=== PATIENT | female | born 1965 | race Caucasian/White ===

== ENCOUNTER 2017-02-12 19:21 | Emergency (ER) | payer OTHER ==
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
--- NOTE | 2017-02-12 21:07 | ED ORDER SUMMARY ---
..... Patient: ZURI HOSKINS OrderSheet [facility] VisitID: [id number] [address] [place] [address] 51y, F Registration Date/Time: 02/12/2017 ORDER SHEET Weight: 70.3 kg (stated) Allergies: No Known Drug Allergy GENERAL ORDERS: Cervical Spine 2 or 3V Urgent (20:13 02/12/2017 Bhavesh ER Diabetes Education Coordinator verbal order read back to EKoroleva P.A.-C) (Ack 20:14 SRedmond) (20:31 MCampbell) MEDICATION ORDERS: Motrin PO 800 mg (NOW) (21:04 02/12/2017 EKoroleva P.A.-C) (Ack 21:07 DDavis R.N.) (21:28 DDavis R.N.) Flexeril PO 10 mg (NOW) (21:04 02/12/2017 EKoroleva P.A.-C) (Ack 21:07 DDavis R.N.) (21:29 DDavis R.N.) IV FLUIDS: ORDER SHEET NOTES: [Electronically signed by Blake Vance R.N. (21:30 02/12/2017)] [Electronically locked/signed by Blake Vance R.N. (:30 02/12/2017)]
--- NOTE | 2017-02-12 21:07 | ED ORDER SUMMARY ---
..... Patient: ZURI HOSKINS OrderSheet [facility] VisitID: [id number] [address] [place] [address] 51y, F Registration Date/Time: 02/12/2017 ORDER SHEET Weight: 70.3 kg (stated) Allergies: No Known Drug Allergy GENERAL ORDERS: Cervical Spine 2 or 3V Urgent (20:13 02/12/2017 Bhavesh ER Seasonal Sales Associate verbal order read back to EKoroleva P.A.-C) (Ack 20:14 SRedmond) (20:31 MCampbell) MEDICATION ORDERS: Motrin PO 800 mg (NOW) (21:04 02/12/2017 EKoroleva P.A.-C) (Ack 21:07 DDavis R.N.) (21:28 DDavis R.N.) Flexeril PO 10 mg (NOW) (21:04 02/12/2017 EKoroleva P.A.-C) (Ack 21:07 DDavis R.N.) (21:29 DDavis R.N.) IV FLUIDS: ORDER SHEET NOTES: [Electronically signed by Blake Vance R.N. (21:30 02/12/2017)] [Electronically locked/signed by Blake Vance R.N. (:30 02/12/2017)]
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
--- NOTE | 2017-02-12 21:27 | DIAGNOSTIC IMAGING REPORT ---
PROCEDURE: XR CERVICAL SPINE 2 OR 3 VIEW INDICATION: NECK TRAUMA/INJURY TECHNIQUE: Three views. COMPARISON: None. FINDINGS: There is moderate disc space narrowing at C4-5, C5-6, and C6-7 with anterior osteophytes. There is straightening and slight reversal of cervical lordosis. There is a 10 mm osseous density posterior to the spinous process of C5. The rest of the osseous structures and disc spaces are normal. IMPRESSION: 1. Moderate degenerative changes of the cervical spine. 2. Straightening and reversal of cervical lordosis compatible with degenerative changes or spasm. 3. There is a 10 mm osseous density posterior to the spinous process of C5 which may represent ossification of the ligamentum nuchae (old) or avulsion fracture (acute versus old). 4. Findings discussed with PAC. Hillary
--- NOTE | 2017-02-12 22:45 | DIAGNOSTIC IMAGING REPORT ---
PROCEDURE: CT CERVICAL SPINE W/O CONTRAST INDICATION: TRAUMA/INJURY TECHNIQUE: Axial CT images were obtained through the cervical spine. Coronal and sagittal reformations were created. No comparison. COMPARISON: Plain films performed the same day. FINDINGS: The craniocervical junction is intact. The cervical vertebral bodies are normal in height without evidence of fracture. There is a well corticated, vertically oriented dystrophic ossification dorsal to the C5 transverse spinous process. No posterior element fractures. Reversal of the normal cervical lordosis with the kyphotic apex at the C5-6 level. Grade 1 retrolisthesis C5 and C6. Moderate anterior and posterior endplate osteophytes C4-C7. Moderate disc height loss C4-5, C5-6, and C6-7. Degenerative space loss and spurring at the atlantodental interval. The central canal is patent. Mild bilateral foraminal narrowing C4-5, left worse than right. Mild left foraminal narrowing C5-6. Mild bilateral foraminal narrowing C6-7. No prevertebral or paravertebral soft-tissue swelling or mass. Patent airway and normal lung apices. Incidental note made of air fluid level in the left sphenoid sinus. IMPRESSION: 1. No acute vertebral body fracture. Dystrophic calcification dorsal to the C5 spinous process. 2. Kyphosis of the cervical spine, likely secondary to muscle spasm and degenerative change. 3. Moderate disc height loss and endplate spurring C4-C7. 4. Findings called to the emergency room. All CT scans at this facility use dose modulation, iterative reconstruction, and/or weight-based dosing when appropriate to reduce radiation dose to as low as reasonably achievable.
--- NOTE | 2017-02-13 00:56 | ED MED RECONCILIATION SUMMARY ---
Patient: ZURI HOSKINS Medication Reconciliation Report [facility] VisitID: [id number] [place] [address] 51y, F Registration Date/Time: 02/12/2017 Weight: 70.3 kg Height/Length: 66 in. BMI: 25.0 ALLERGIES: No Known Drug Allergy The patient's Home Medications are listed below: NONE. The source(s) of the original Home Medication information: Not obtained. The following Medications were given to the patient in the Emergency Department: Motrin [PO] PO 800 mg, administered: 02/12/2017 9:13:00 PM Flexeril [PO] PO 10 mg, administered: 02/12/2017 9:13:00 PM The following Medications were prescribed to the patient: Take OTC medications according to label instructions. Available over the counter. -- Yoko Bourne, P.A.-C Acetaminophen (available over the counter): take according to label instructions. -- Yoko Bourne, P.A.-C Motrin (available over the counter): take according to label instructions. -- Yoko Bourne, P.A.-C Flexeril 10 mg: take 1 orally every 8 hours for 3 days as needed for muscle spasm. Dispense ten (10). No refills. Substitution is permissible. -- Yoko Bourne, P.A.-C
--- NOTE | 2017-02-13 00:56 | ED MAR SUMMARY ---
..... Medication Administration Record [facility] [address] [place] [address] Patient: ZURI HOSKINS Visit ID: [id number] 51y, F Weight: 70.3 kg Height/Length: 66 in BMI: 25 ALLERGIES: No Known Drug Allergy Given 21:02/12/2017 Blake Vance R.N. Medication Administered: MOTRIN [PO], Dose: 800 mg Tablets PO. Medication Ordered: Motrin PO 800 mg (NOW). Given 21:02/12/2017 Blake Vance R.N. Medication Administered: FLEXERIL [PO] (CYCLOBENZAPRINE HCL), Dose: 10 mg Tablets PO. Medication Ordered: Flexeril PO 10 mg (NOW).
--- NOTE | 2017-02-13 00:56 | ED MED RECONCILIATION SUMMARY ---
Patient: ZURI HOSKINS Medication Reconciliation Report [facility] VisitID: [id number] [place] [address] 51y, F Registration Date/Time: 02/12/2017 Weight: 70.3 kg Height/Length: 66 in. BMI: 25.0 ALLERGIES: No Known Drug Allergy The patient's Home Medications are listed below: NONE. The source(s) of the original Home Medication information: Not obtained. The following Medications were given to the patient in the Emergency Department: Motrin [PO] PO 800 mg, administered: 02/12/2017 9:13:00 PM Flexeril [PO] PO 10 mg, administered: 02/12/2017 9:13:00 PM The following Medications were prescribed to the patient: Take OTC medications according to label instructions. Available over the counter. -- Yoko Bourne, P.A.-C Acetaminophen (available over the counter): take according to label instructions. -- Yoko Bourne, P.A.-C Motrin (available over the counter): take according to label instructions. -- Yoko Bourne, P.A.-C Flexeril 10 mg: take 1 orally every 8 hours for 3 days as needed for muscle spasm. Dispense ten (10). No refills. Substitution is permissible. -- Yoko Bourne, P.A.-C
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
--- NOTE | 2017-02-13 00:56 | ED MAR SUMMARY ---
..... Medication Administration Record [facility] [address] [place] [address] Patient: ZURI HOSKINS Visit ID: [id number] 51y, F Weight: 70.3 kg Height/Length: 66 in BMI: 25 ALLERGIES: No Known Drug Allergy Given 21:02/12/2017 Blake Vance R.N. Medication Administered: MOTRIN [PO], Dose: 800 mg Tablets PO. Medication Ordered: Motrin PO 800 mg (NOW). Given 21:02/12/2017 Blake Vance R.N. Medication Administered: FLEXERIL [PO] (CYCLOBENZAPRINE HCL), Dose: 10 mg Tablets PO. Medication Ordered: Flexeril PO 10 mg (NOW).
== END 2017-02-12 23:00 | disposition home or self-care (01) ==
LOC: ED SRH 19:21
DX: S16.1XXA Strain of muscle, fascia and tendon at neck level, initial encounter (principal); V43.62XA Car passenger injured in collision with other type car in traffic accident, initial encounter; Y93.9 Activity, unspecified; Y99.9 Unspecified external cause status; Y92.9 Unspecified place or not applicable; R93.7 Abnormal findings on diagnostic imaging of other parts of musculoskeletal system